=== PATIENT | female | born 1955 | race Caucasian/White ===

== ENCOUNTER 2018-08-06 11:24 | Outpatient (REF) | payer BC, SELFPAY ==
[2018-08-06 21:18] LABS: Anion Gap 6.8 mmol/L (3-11); BUN 18 mg/dL (7-18); CO2 29.2 mmol/L (21.0-32.0); CREATININE 0.74 mg/dL (0.55-1.02); Calcium 9.3 mg/dL (8.5-10.1); Chloride 102 mmol/L (98-107); Cholesterol 261 mg/dL (50-200); Glucose 89 mg/dL (70-100); HDL Cholesterol 59 mg/dL (40-60); LDL CHOLESTEROL 177 mg/dL (<100); Potassium 4.6 mmol/L (3.5-5.1); Sodium 138 mmol/L (136-145); Triglyceride 151 mg/dL (30-150)
== END 2018-08-06 11:44 ==
LOC: NCHCN 11:24
PROVIDERS: PCP Nurse Practitioner Family; Visit Provider Nurse Practitioner Family
DX: Z00.00 Encounter for general adult medical examination without abnormal findings (principal); E78.5 Hyperlipidemia, unspecified; I10 Essential (primary) hypertension; R00.8 Other abnormalities of heart beat; I87.2 Venous insufficiency (chronic) (peripheral); G43.909 Migraine, unspecified, not intractable, without status migrainosus; M19.90 Unspecified osteoarthritis, unspecified site
CPT/HCPCS: 80048; 80061; 83721

== ENCOUNTER 2018-10-19 00:14 | Outpatient (CLI) | payer BC, SELFPAY ==
--- NOTE | 2018-10-19 11:10 | DI.MAMMO_ITS ---
SYMPTOMS/DIAGNOSIS: SCREENING, Z12.31, PREVENTATIVE CARE, Z00.00 MAMMOGRAM: Mammograms were interpreted according to the usual protocol including computer analysis with CAD system, tomosynthesis and C view imaging. Comparison is made with exams from 2013 through 2018. The breasts are composed of scattered fibroglandular densities, breast density Category B. No suspicious masses or suspicious microcalcifications are seen. There has been no significant change. IMPRESSION: Category I B, negative mammogram. Yearly screening mammography is recommended. [facility] ASSESSMENT OF FINDINGS: Negative. Category 1. Patient will receive a letter notifying them of these results. BI-RADS category B. There are scattered areas of fibroglandular density.
== END 2018-10-19 00:34 ==
PROVIDERS: PCP Nurse Practitioner Family; Visit Provider Nurse Practitioner Family
DX: Z00.00 Encounter for general adult medical examination without abnormal findings (principal); Z12.31 Encounter for screening mammogram for malignant neoplasm of breast
CPT/HCPCS: 77063; 77067

== ENCOUNTER 2019-03-09 12:13 | Outpatient (CLI) | payer BC, SELFPAY ==
--- NOTE | 2019-03-09 12:26 | DI.US_ITS ---
SYMPTOM/DIAGNOSIS: LEG PAIN, M79.696, FIRM AREA, PAINFUL AND RED, ? DVT VS SUPERFICIAL THROMBOPHLEBITIS RIGHT LOWER EXTREMITY ULTRASOUND: Thrombus is noted within the greater saphenous vein from the proximal thigh through the proximal calf. The clot extends 2 cm. from the saphenofemoral junction. The deep venous system appears free of thrombus. No Cook's cyst or hematoma is seen. IMPRESSION: Saphenous thrombosis.
[2019-03-09 12:35] LABS: Abs Immature Grans 0.02 k/cumm (0.0-0.09); Absolute Basophil Count 0.02 k/cumm (0.0-0.2); Absolute Eosinophil Count 0.21 k/cumm (0.0-0.7); Absolute Lymphocyte Count 2.11 k/cumm (1.2-3.4); Absolute Monocyte Count 0.56 k/cumm (0.11-0.7); Absolute Neutrophil Count 4.25 k/cumm (1.2-6.7); Basophils % 0.3; Eosinophils % 2.9; HCT 42.6 % (36.0-46.0); HGB 14.2 g/dL (12.0-15.5); Immature Grans % 0.3; Lymphocytes % 29.4; Mean Corp. HGB Concentration 33.3 g/dL (32.0-36.0); Mean Corpuscular Hemoglobin 31.8 pg (27.0-33.0); Mean Corpuscular Volume 95.3 fL (80-95); Mean Platelet Volume 10.4 fL (8.0-11.0); Monocytes % 7.8; Neutrophils % 59.3; Platelet Count 262 x1000/uL (130-400); RBC 4.47 m/cumm (4.00-5.20); White Blood Cell Count 7.17 k/cumm (4.4-10.8)
[2019-03-09 12:56] LABS: Prothrombin Time 9.6 sec (9.3-11.0)
[2019-03-09 13:10] LABS: PTT Activated 23.1 sec (21.0-31.4)
[2019-03-09 13:43] LABS: C-Reactive Protein 1.26 mg/dL (0.0-0.3)
[2019-03-09 14:21] LABS: D-Dimer 2268 ng/mlFEU (<500)
[2019-03-09 14:46] LABS: ESR 22 MM/HR (0-30)
== END 2019-03-09 12:33 ==
PROVIDERS: PCP Nurse Practitioner Family; Visit Provider Nurse Practitioner Family
DX: M79.604 Pain in right leg (principal); I82.811 Embolism and thrombosis of superficial veins of right lower extremity; L53.8 Other specified erythematous conditions
CPT/HCPCS: 36415; 85652; 85025; 85379; 85610; 85730; 86140; 93971

== ENCOUNTER 2019-04-06 01:21 | Outpatient (CLI) | payer BC, SELFPAY ==
--- NOTE | 2019-04-06 07:30 | DI.US_ITS ---
SYMPTOM/DIAGNOSIS: F/U SAPHENOUS VEIN THROMBOPHLEBITIS, I80.00 RIGHT LOWER EXTREMITY ULTRASOUND: The deep veins of the right lower extremity show normal compression, augmentation and color flow. There is no evidence of a deep venous thrombus. No focal fluid collection is seen to suggest a Cook's cyst. Thrombus is seen in the greater saphenous vein. The saphenofemoral junction appears patent. IMPRESSION: 1. No evidence of a right lower extremity deep venous thrombus. 2. Superficial thrombophlebitis.
== END 2019-04-06 01:41 ==
PROVIDERS: PCP Nurse Practitioner Family; Visit Provider Nurse Practitioner Family
DX: I80.01 Phlebitis and thrombophlebitis of superficial vessels of right lower extremity (principal)
CPT/HCPCS: 93971

== ENCOUNTER 2020-03-15 08:23 | Outpatient (REF) | payer MEDICAID, SELFPAY ==
[2020-03-15 19:47] LABS: BUN 15 mg/dL (7-18); CREATININE 0.94 mg/dL (0.55-1.02); Calcium 9.5 mg/dL (8.5-10.1); Calculated LDL 181 mg/dL (<100); Chloride 100 mmol/L (98-107); Cholesterol 275 mg/dL (<200); Estimated GFR 59.76 (mL/min/1.73m2); Glucose 94 mg/dL (74-106); HDL Cholesterol 54 mg/dL (40-60); Potassium 4.5 mmol/L (3.5-5.1); Sodium 138 mmol/L (136-145); Triglyceride 203 mg/dL (<150)
== END 2020-03-15 08:43 ==
LOC: NCHCN 08:23
PROVIDERS: PCP Nurse Practitioner Family; Visit Provider Nurse Practitioner Family
DX: E78.5 Hyperlipidemia, unspecified (principal); I10 Essential (primary) hypertension; I87.2 Venous insufficiency (chronic) (peripheral); I80.00 Phlebitis and thrombophlebitis of superficial vessels of unspecified lower extremity; F41.8 Other specified anxiety disorders
CPT/HCPCS: 80048; 80061

== ENCOUNTER 2020-04-18 00:24 | Outpatient (CLI) | payer MEDICAID, SELFPAY ==
--- NOTE | 2020-04-18 | DI.MAMMO_ITS ---
EXAM: MAMMO SCREENING CLINICAL HISTORY: SCREENING, Z12.39 TECHNIQUE: Mammograms were interpreted according to the usual protocol including computer analysis w ith CAD system, tomosynthesis and C-view imaging. COMPARISON: 2009 through 2018 FINDINGS: The breasts are composed of scattered fibroglandular densities, Breast Density category B. No suspicious masses or suspicious microcalcifications are seen. No skin thickening or abnormal axillary lymph nodes are seen. There has been no significant change from prior exams. IMPRESSION: BI-RADS Category 1, negative mammogram. Yearly screening mammography is recommended. Breast Density Category B, scattered fibroglandular densities.
== END 2020-04-18 00:44 ==
PROVIDERS: PCP Nurse Practitioner Family; Visit Provider Nurse Practitioner Family
DX: Z12.31 Encounter for screening mammogram for malignant neoplasm of breast (principal); R92.2 Inconclusive mammogram
CPT/HCPCS: 77063; 77067

== ENCOUNTER 2022-06-12 15:32 | Outpatient (REF) | payer MEDICARE, MEDICAID, SELFPAY ==
[2022-06-12 17:17] LABS: Anion Gap 9.6 mmol/L (3-11); BUN 12 mg/dL (7-18); CO2 27.4 mmol/L (21.0-32.0); CREATININE 0.8 mg/dL (0.55-1.02); Calcium 9.3 mg/dL (8.5-10.1); Chloride 101 mmol/L (98-107); Estimated GFR 80.71 (mL/min/1.73m2); Glucose 106 mg/dL (74-106); Potassium 4.3 mmol/L (3.5-5.1); Sodium 138 mmol/L (136-145)
== END 2022-06-12 15:33 | disposition home or self-care (01) ==
LOC: NCHCN 15:32
PROVIDERS: PCP Nurse Practitioner Family; Visit Provider Nurse Practitioner Family
DX: I10 Essential (primary) hypertension (principal)
CPT/HCPCS: 80048

== ENCOUNTER → 2022-06-27 01:55 | Outpatient (CLI) | payer MEDICARE, MEDICAID, SELFPAY ==
--- NOTE | 2022-06-27 | DI.MAMMO_ITS ---
Exam(s) MAMMO SCREENING EXAM: MAMMO SCREENING CLINICAL HISTORY: SACREENING MAMMO FOR BREAST CANCER Z12.31 TECHNIQUE: Mammograms were interpreted according to the usual protocol including computer analysis w [employer] CAD system, tomosynthesis and C-view imaging. COMPARISON: FINDINGS: The breasts are of moderate density with fairly symmetrical distribution of fibroglandular tissue. N o dominant mass or clumped microcalcification is identified in either breast. The current examinatio n is compared with previous examinations including March 2020 and there has been no gross interval ced nge in appearance in comparison with prior studies. IMPRESSION: No specific evidence of malignancy at this time. Routine screening examinations are suggested at yea rly intervals due to the family history of breast carcinoma. BI-RADS Category 1 - Negative Breast Density - Category B - Scattered areas of fibroglandular density
== END ==
PROVIDERS: PCP Nurse Practitioner Family; Visit Provider Nurse Practitioner Family
DX: Z12.31 Encounter for screening mammogram for malignant neoplasm of breast (principal)
CPT/HCPCS: 77063; 77067

== ENCOUNTER 2023-06-16 14:31 | Outpatient (REF) | payer MEDICARE, MEDICAID, SELFPAY ==
[2023-06-16 21:12] LABS: Anion Gap 10.2 mmol/L (3-11); BUN 14 mg/dL (7-18); CO2 25.8 mmol/L (21.0-32.0); CREATININE 0.9 mg/dL (0.55-1.02); Calcium 9.3 mg/dL (8.5-10.1); Calculated LDL 193 mg/dL (<100); Chloride 100 mmol/L (98-107); Cholesterol 279 mg/dL (<200); Estimated GFR 69.64 (mL/min/1.73m2); Glucose 95 mg/dL (74-106); HDL Cholesterol 49 mg/dL (40-60); Potassium 3.9 mmol/L (3.5-5.1); Sodium 136 mmol/L (136-145); Triglyceride 189 mg/dL (<150)
== END 2023-06-16 14:32 | disposition home or self-care (01) ==
LOC: NCHCN 14:31
PROVIDERS: PCP Nurse Practitioner Family; Visit Provider Nurse Practitioner Family
DX: I10 Essential (primary) hypertension (principal); E78.5 Hyperlipidemia, unspecified
CPT/HCPCS: 80048; 80061

== ENCOUNTER → 2023-07-01 01:05 | Outpatient (CLI) | payer MEDICARE, MEDICAID, SELFPAY ==
--- NOTE | 2023-07-01 | DI.MAMMO_ITS ---
Exam(s) MAMMO SCREENING EXAM: MAMMO SCREENING CLINICAL HISTORY: SCREENING FOR BREAST CANCER Z12.39 Z12.31 TECHNIQUE: Bilateral full field digital CC and MLO mammographic images were obtained with 3D tomosyn thesis and utilizing computer aided detection (CAD). COMPARISON: Available for comparison. FINDINGS: Masses/Architectural Distortion: None seen. Microcalcifications: No suspicious pleomorphic-type are seen. Skin Thickening/Nipple Retraction: None. IMPRESSION: 1. No significant interval change with no specific features of malignancy noted. 2. Unless there is more urgent need, screening mammography is recommended, as per [place] [employer] guidelines. BI-RADS Category 1 - Negative Breast Density - Category B - Scattered areas of fibroglandular density Breast density category C or D implies that the patient has dense breast tissue. Dense breast tissue is very common and is not abnormal but dense breast tissue can make it harder to find cancer on a ma mmogram. Also, dense breast tissue may increase their breast cancer risk. This information about the result of the mammogram report was provided to the patient to raise their awareness. Use this report when you speak with the patient about their risks for breast cancer, which includes their family hist ory. At that time, you may recommend for more screening tests (Ultrasound or MRI) as they might be us eful based on their risk. A negative radiographic report should not delay biopsy if a dominant or clinically suspicious mass is present. Up to ten percent of cancers are not identified on mammography. A negative report may reinforce clinical impression. Adenosis and dense breasts may obscure an underlying neoplasm. False positive reports average 6 to 10%. Patient will receive a letter notifying them of these results.
== END ==
PROVIDERS: PCP Nurse Practitioner Family; Visit Provider Nurse Practitioner Family
DX: Z12.31 Encounter for screening mammogram for malignant neoplasm of breast (principal)
CPT/HCPCS: 77063; 77067

== ENCOUNTER 2024-06-15 11:49 | Outpatient (REF) | payer MEDICARE, MEDICAID, SELFPAY ==
[2024-06-15 16:07] LABS: ALT 6 U/L (14-59); AST 14 U/L (15-37); Albumin 3.4 g/dL (3.4-5.0); Alkaline Phosphatase 87 U/L (46-116); Anion Gap 7.4 mmol/L (3-11); BUN 14 mg/dL (7-18); Bilirubin, Total 0.77 mg/dL (0.2-1.0); CO2 28.6 mmol/L (21.0-32.0); CREATININE 0.9 mg/dL (0.55-1.02); Calcium 9.4 mg/dL (8.5-10.1); Calculated LDL 211 mg/dL (<100); Chloride 100 mmol/L (98-107); Cholesterol 297 mg/dL (<200); Glucose 104 mg/dL (74-106); HDL Cholesterol 52 mg/dL (40-60); Sodium 136 mmol/L (136-145); Total Protein 8.1 g/dL (6.4-8.2); Triglyceride 173 mg/dL (<150)
[2024-06-15 16:40] LABS: Hemoglobin A1C 5.8 % (<5.7)
== END 2024-06-15 11:50 | disposition home or self-care (01) ==
LOC: NCHCN 11:49
PROVIDERS: PCP Nurse Practitioner Family; Visit Provider Physician Assistant Medical
DX: I10 Essential (primary) hypertension (principal)
CPT/HCPCS: 80053; 80061; 83036

== ENCOUNTER 2024-06-21 02:23 | Outpatient (CLI) | payer MEDICARE, MEDICAID, SELFPAY ==
--- NOTE | 2024-06-21 | DI.MAMMO_ITS ---
Exam(s) MAMMO SCREENING EXAM: MAMMO SCREENING CLINICAL HISTORY: SCREENING, Z12.31 TECHNIQUE: Mammograms were interpreted according to the usual protocol including computer analysis w [employer] CAD system, tomosynthesis and C-view imaging. COMPARISON: 2013 through 2022 FINDINGS: The breasts are composed of scattered fibroglandular densities, Breast Density category B. No suspicious masses or suspicious microcalcifications are seen. No skin thickening or abnormal axillary lymph nodes are seen. There has been no significant change from prior exams. IMPRESSION: BI-RADS Category 1, Negative mammogram Yearly screening mammography is recommended. Breast Density - Category B, scattered fibroglandular densities. A negative radiographic report should not delay biopsy if a dominant or clinically suspicious mass is present. Up to ten percent of cancers are not identified on mammography. A negative report may reinforce clinical impression. Adenosis and dense breasts may obscure an underlying neoplasm. False positive reports average 6 to 10%. Patient will receive a letter notifying them of these results.
== END 2024-06-21 02:43 ==
PROVIDERS: PCP Physician Assistant Medical; Visit Provider Physician Assistant Medical
DX: Z12.31 Encounter for screening mammogram for malignant neoplasm of breast (principal)
CPT/HCPCS: 77063; 77067

== ENCOUNTER 2025-06-22 11:35 | Outpatient (REF) | payer MEDICARE, MEDICAID, SELFPAY ==
[2025-06-22 15:57] LABS: HCT 43.3 % (36.0-46.0); HGB 14.3 g/dL (11.2-15.7); MCH 31.6 pg (27.0-33.0); MCHC 33.0 % (32.0-36.0); MCV 96 fL (80-95); MPV 10.6 fL (8.0-11.0); Platelet Count 308 10^3/uL (130-400); RBC 4.52 10^6/uL (3.93-5.22); RDW 13.3 % (11.7-14.6); RDW-SD 46.8 fL; WBC 10.16 10^3/uL (4.4-10.8)
[2025-06-22 16:15] LABS: Anion Gap 7.2 mmol/L (3-11); BUN 17 mg/dL (7-18); CO2 29.8 mmol/L (21.0-32.0); Calcium 9.3 mg/dL (8.5-10.1); Calculated LDL 173 mg/dL (<100); Chloride 100 mmol/L (98-107); Cholesterol 266 mg/dL (<200); Estimated GFR 68.77 (mL/min/1.73m2); Glucose 101 mg/dL (74-106); HDL Cholesterol 52 mg/dL (>or=50); Potassium 4.8 mmol/L (3.5-5.1); Sodium 137 mmol/L (136-145); Triglyceride 206 mg/dL (<150)
[2025-06-22 16:25] LABS: Hemoglobin A1C 5.8 % (<5.7)
== END 2025-06-22 11:36 | disposition home or self-care (01) ==
LOC: NCHCN 11:35
PROVIDERS: PCP Physician Assistant Medical; Visit Provider Physician Assistant Medical
DX: Z13.1 Encounter for screening for diabetes mellitus (principal); I10 Essential (primary) hypertension; R35.0 Frequency of micturition
CPT/HCPCS: 80048; 80061; 85027; 87077; 83036; 87086; 87186

== ENCOUNTER 2025-06-30 04:34 | Outpatient (CLI) | payer MEDICARE, MEDICAID, SELFPAY ==
--- NOTE | 2025-06-30 | DI.MAMMO_ITS ---
Exam(s) MAMMO SCREENING EXAM: MAMMO SCREENING CLINICAL HISTORY: SCREENING, Z12.31 TECHNIQUE: Bilateral full field digital CC and MLO mammographic images were obtained with 3D tomosynthesis and utilizing computer aided detection (CAD). COMPARISON: Comparison is made with prior examinations. FINDINGS: Masses/Architectural Distortion: No suspicious masses or areas of architectural distortion are present. Microcalcifications: No suspicious pleomorphic-type are seen. Skin Thickening/Nipple Retraction: None. IMPRESSION: 1. No significant interval change with no specific features of malignancy noted. 2. Unless there is more urgent need, screening mammography is recommended, as per [place] [employer] guidelines. BI-RADS Category 1 - Negative Breast Density - Category B - There are scattered areas of fibroglandular density. Breast density Category C or D implies that the patient has dense breast tissue. Dense breast tissue can make it harder to find cancer on a mammogram. Dense breast tissue is also associated with an increased risk of breast cancer. This information about the result of the mammogram report was provided to the patient to raise their awareness. Use this report when you speak with the patient about their risks for breast cancer, which includes their family history. At that time, you may recommend additional screening tests (Ultrasound or MRI) as these tests may add significant information. A negative radiographic report should not delay biopsy if a dominant or clinically suspicious mass is present. Up to ten percent of cancers are not identified on mammography. A negative report may reinforce clinical impression. Adenosis and dense breasts may obscure an underlying neoplasm. False positive reports average 6 to 10%. Patient will receive a letter notifying them of these results.
== END 2025-06-30 04:54 ==
PROVIDERS: PCP Physician Assistant Medical; Visit Provider Physician Assistant Medical
DX: Z12.31 Encounter for screening mammogram for malignant neoplasm of breast (principal)
CPT/HCPCS: 77063; 77067

== ENCOUNTER 2025-08-26 15:20 | Observation (INO) | payer MEDICARE, MEDICAID, SELFPAY ==
[2025-08-26 15:26] VITALS: BP 170/103; PULSE 87; RESP 20; TEMP 36.8; O2SAT 95
--- NOTE | 2025-08-26 15:30 | DI.CT_ITS ---
Exam(s) CT THORACIC LUMBAR SPINE WO EXAM: CT THORACIC LUMBAR SPINE WO CLINICAL HISTORY: fall, pain. TECHNIQUE: Imaging Protocol: Axial computed tomography images with coronal and sagittal reformatted images were created and reviewed. CONTRAST MATERIAL: None COMPARISON: No exams were available for comparison FINDINGS: THORACIC SPINAL COLUMN: No evidence acute fracture the thoracic vertebrae. No listhesis. No facet joint malalignment. Incidentally noted is a benign intraosseous hemangioma in the left side of a midthoracic vertebra. No ominous osseous lesions. LUMBOSACRAL SPINAL COLUMN: No evidence of acute fracture or listhesis. There is advanced disc space narrowing at each level in the lumbosacral spinal column. No pars defects. Transverse process is are in tact. There is severe spinal canal stenosis at L3- 4 level and moderate-severe canal stenosis at L4-5 level. Multilevel facet arthropathy evident most prominent at the L3-4, L4-5, and L5-S1 levels IMPRESSION: 1. No evidence of acute fracture in the thoracic and lumbosacral spinal columns. 2. Severe spinal canal stenosis at L3-4 and L4-5 levels Called by myself to ER physician 08/26/2025 at 5:04 p.m. RADIATION DOSE DELIVERED: 2,543.01mGy.cm Total DLP DATA REPOSITORY: All CT scans at this facility are submitted to the National Radiology Data Registry (NRDR) Dose Index Registry (DIR) with the [employer] (A[employer]). RADIATION OPTIMIZATION: All CT scans at this facility use at least one of these dose optimization techniques: automated exposure control; mA and/or kV adjustment per patient size (includes targeted exams where dose is matched to clinical indication); or iterative reconstruction.
--- NOTE | 2025-08-26 15:44 | W.ED.GENAD ---
Discharge Plan Disposition Patient Disposition: Admit to [facility] Condition: Stable Discharge Details Clinical Impression: Low back strain, Ambulatory dysfunction Primary Care Provider: Evelyne Nnuo ED Provider: Duglas Perez Home Meds and New Rx's Prescriptions: No Action aspirin [Aspirin Low-Strength] 81 MG tablet,chewable 81 mg PO DAILY ibuprofen 200 MG capsule 400 mg PO PRN PRN metoprolol tartrate 25 mg tablet 25 mg PO BID Patient Comments: TAKE ONE TABLET BY MOUTH TWICE A DAY acetaminophen [Tylenol Arthritis Pain] 650 MG tablet extended release 650 mg PO DAILY Pepcid Complete 1 EACH tablet,chewable 1 ea PO DAILY HPI General Mode of arrival: wheelchair. Date/Time Provider Initiated Documentation: 08/26/25 15:22. Limitations to Documentation: no limitations. Information obtained by: patient. History of Present Illness 70 year old F presents to the emergency department with the chief complaint of back pain s/p fall, described as moderate, Quality is described as aching, and is localized to the back. Patient reports no radiation. Patient started experiencing this hour(s) (1) and it has been constant. No relieving factors improve symptom(s), No exacerbating factors reported . Patient notes no other symptoms.. Patient did receive the following treatments prior to arrival, NSAID Related Data Home Medications ?Medication ?Instructions ?Recorded ?Confirmed ibuprofen 200 mg capsule 400 mg PO PRN PRN 02/12/15 08/26/25 aspirin 81 mg chewable tablet 81 mg PO DAILY 09/07/15 08/26/25 (Aspirin Low-Strength) acetaminophen 650 mg 650 mg PO DAILY 01/23/17 08/26/25 tablet,extended release (Tylenol Arthritis Pain) famotidine-Ca carb-mag hydrox 10 1 ea PO DAILY 01/23/17 08/26/25 mg-800 mg-165 mg chewable tablet (Pepcid Complete) metoprolol tartrate 25 mg tablet 25 mg PO BID 08/26/25 08/26/25 Allergies Allergy/AdvReac Type Severity Reaction Status Date / Time No Known Allergies Allergy Unverified 08/26/25 15:30 General Stated Complaint: Nk/Back Pain JEN: 3 Review of Systems All systems reviewed & are unremarkable except as noted in HPI and below Constitutional Constitutional: Denies chills, Denies fever(s) and Denies weakness Cardiovascular Cardiovascular: Denies chest pain and Denies dyspnea Respiratory Respiratory: Denies cough and Denies dyspnea Gastrointestinal Gastrointestinal: Denies abdominal pain, Denies nausea and Denies vomiting Musculoskeletal Musculoskeletal: Reports back pain Neurologic Neurologic: Denies weakness Exam Const General: no acute distress Orientation: alert [facility] Head: normal to inspection Ears: external ears normal General nose exam: external nose normal Mouth: moist mucous membranes Eyes General: appearance normal, both eyes and all related structures Neck Neck: normal visual inspection Resp Effort & Inspection: normal respiratory effort and able to speak in complete sentences Cardio Rate: regular rate GI Palpation: soft and nontender Back/Spine/Pelvis Back: no CVA tenderness Thoracic/Lumbar Spine: thoracic spinal tenderness and lumbar spinal tenderness Skin General skin exam: no rashes or lesions noted Neuro General: patient alert and patient oriented x3 Extrem General: normal to inspection Psych Mental Status: mental status grossly normal Course Vital Signs Vital signs: Vital Signs Temperature 36.8 C 08/26/25 15:26 Pulse 87 08/26/25 15:26 Respiratory Rate 20 08/26/25 15:26 Blood Pressure 170/103 H 08/26/25 15:26 Pulse Oximetry 95 08/26/25 15:26 Temperature 36.8 C 08/26/25 15:26 Pulse 87 08/26/25 15:26 Respiratory Rate 20 08/26/25 15:26 Blood Pressure 170/103 H 08/26/25 15:26 Blood Pressure Position Sitting 08/26/25 15:26 Pulse Oximetry 95 08/26/25 15:26 Oxygen Delivery Method Room Air 08/26/25 15:26 Oxygen Flow Rate 0 08/26/25 15:26 Medical Decision Making 70-year-old female comes in after she says she was carrying laundry detergent and her right knee gave out which she says happens from time to time causing her to fall down on her back. She did not hit her head or loss of consciousness. She has pain in the lower midline back. No headache, no neck pain, no chest or abdomen pain. She has tenderness over the lower thoracic and upper lumbar spinous processes without any palpable or visible deformities. Also has paraspinous muscle tenderness in the areas. No abdominal or chest tenderness. No saddle anesthesia. Suspect muscle spasm and possibly a compression fracture. Will obtain CT thoracic and lumbar spine and check basic labs and treat her symptoms with Tylenol and Valium and reassess. CT shows no fractures, does have spinal stenosis, she is not feeling any better in terms of her pain. Will trial cyclobenzaprine and Toradol and reassess. Patient was still in pain so I trialed morphine with minimal relief and she still was not able to get out of the stretcher. I do suspect musculoskeletal back strain, will discuss with hospitalist about admission for further pain control and to see physical therapy in the morning. Differential Diagnosis Differential Diagnosis: muscle spasm, compression fracture ECG Data Attestation: I personally reviewed and interpreted this ECG (s) as follows: Prior ECG tracings: not available for review Interpretation: sinus rate of 84 no stemi PFSH All Active Problems (Updated 08/26/25 @ 19:41 by Aman Sykes MD) Systolic ejection murmur (Acute) HTN (hypertension) (Chronic) Ambulatory dysfunction (Acute) Low back strain (Acute) Social History Smoking/Tobacco Use Status: Never Smoking risk assessment performed?: Yes Drug use: Never Do you feel safe in your relationship?: Yes
[2025-08-26] MEDS: diazePAM 10 MG/2 ML SYR 2 MG IVP (15:57)
[2025-08-26] MEDS: ACETAMINOPHEN 1,000 MG/100 ML BAG 400 MG IVPB (15:57)
[2025-08-26 15:58] LABS: Abs Immature Grans 0.05 10^3/uL (0.0-0.06); HCT 44.1 % (36.0-46.0); HGB 14.5 g/dL (11.2-15.7); Immature Grans % 0.5 %; MCH 31.2 pg (27.0-33.0); MCHC 32.9 % (32.0-36.0); MCV 95 fL (80-95); MPV 10.0 fL (8.0-11.0); Platelet Count 240 10^3/uL (130-400); RBC 4.65 10^6/uL (3.93-5.22); RDW 14.1 % (11.7-14.6); RDW-SD 49.3 fL; WBC 9.42 10^3/uL (4.4-10.8)
[2025-08-26 16:16] LABS: Magnesium 1.9 mg/dL (1.6-2.6)
[2025-08-26 16:18] LABS: ALT 7 U/L (10-49); AST 17 U/L (<34); Albumin 4.2 g/dL (3.2-5.0); Alkaline Phosphatase 73 U/L (46-116); Anion Gap 8.7 mmol/L (3-11); BUN 19 mg/dL (9-23); Bilirubin, Total 0.40 mg/dL (0.2-1.2); CO2 26.3 mmol/L (20.0-31.0); Calcium 9.3 mg/dL (8.3-10.6); Chloride 104 mmol/L (98-107); Glucose 104 mg/dL (74-106); Potassium 4.1 mmol/L (3.5-5.1); Sodium 139 mmol/L (136-145); Total Protein 8.0 g/dL (5.7-8.2)
[2025-08-26] MEDS: Ketorolac 15 MG/ML VIAL IVP (17:31)
[2025-08-26] MEDS: Cyclobenzaprine 10 MG TAB PO ×2 (17:33→21:28)
[2025-08-26] MEDS: Lidocaine 5% Patch 1 PATCH TP (17:34)
[2025-08-26] MEDS: MORPHine 10 MG/ML VIAL 4 MG IVP (18:19)
[2025-08-26 19:20] VITALS: BP 147/78; PULSE 89; RESP 16; O2SAT 94
--- NOTE | 2025-08-26 19:30 | RT.EKG_ITS ---
APPROVED REPORT Exam: Resting ECG Reason for Exam: duncan Patient Location: E HR:84 bpm ECG Measurements Heart Rate 84 AXIS FL 170 P 53 QRSd 75 QRS -24 QT 371 T 33 QTc 437 Conclusion Sinus rhythm...normal P axis, V-rate 60- 99 Probable left atrial enlargement...P >50mS, <-0.10mV V1 Inferior infarct, old...Q >35mS, II III aVF
--- NOTE | 2025-08-26 19:37 | HPE_ITS ---
Date of service: 08/26/25 Time of Service: 19:37 Assessment and Plan Assessment and plan (1) Low back strain: Status: Acute Assessment and plan: Physical therapy in the a.m. continue with muscle relaxants and pain meds. Patient does not have signs and symptoms consistent with radiculopathy. Would consider workup in the outpatient setting at the discretion of her PCP with her severe spinal canal stenosis. Will body of the report for completeness. MPRESSION: 1. No evidence of acute fracture in the thoracic and lumbosacral spinal columns. 2. Severe spinal canal stenosis at L3-4 and L4-5 levels (2) HTN (hypertension): Status: Chronic Assessment and plan: Continue with metoprolol (3) Systolic ejection murmur: Status: Acute Assessment and plan: I have ordered an EKG. Ideally we can get an echocardiogram but as it is the weekend and the patient is asymptomatic recommend a follow-up appointment in the outpatient setting. History of Present Illness History of Present Illness Chief Complaint: back pain Narrative: This is a 70-year-old female who is in remarkably good shape for her age who was walking down the steps at her house carrying some laundry and her knee gave out she fell to the floor did not strike her head is landed on her right side but had significant back pain after the fall. Patient was brought in by ambulance for further evaluation and treatment. While she was in the ED CT scan of her lumbar thoracic and sacral spine was performed which was essentially benign except for severe spinal canal stenosis at L3-L4 and L4-L5. Patient does not have any complaints of radiculopathy patient does not have any complaints of bowel or bladder incontinence. Patient attempted a walk test but was not able to ambulate safely so decision was made to admit overnight. On my physical exam though I did not hear significant 4-6 systolic ejection murmur. Patient states that he never had an echocardiogram denies any dyspnea on exertion or chest pain. Patient is a full code Review of Systems All systems reviewed & are unremarkable except as noted in HPI and below PFSH All Active Problems (Updated 08/26/25 @ 19:41 by Aman Sykes MD) Systolic ejection murmur (Acute) HTN (hypertension) (Chronic) Ambulatory dysfunction (Acute) Low back strain (Acute) Social History Smoking/Tobacco Use Status: Never Smoking risk assessment performed?: Yes Drug use: Never Do you feel safe in your relationship?: Yes Meds Allergies and Home Medications Allergies Allergy/AdvReac Type Severity Reaction Status Date / Time No Known Allergies Allergy Unverified 08/26/25 15:30 Home Medications ?Medication ?Instructions ?Recorded ?Confirmed ?Type ibuprofen 200 mg capsule 400 mg PO PRN PRN 02/12/15 1 10/27/24 History aspirin 81 mg chewable tablet 81 mg PO DAILY 09/07/15 08/26/25 History (Aspirin Low-Strength) acetaminophen 650 mg 650 mg PO DAILY 01/23/1702/13 History tablet,extended release (Tylenol Arthritis Pain) famotidine-Ca carb-mag hydrox 10 1 ea PO DAILY 7 08/26/25 History mg-800 mg-165 mg chewable tablet (Pepcid Complete) metoprolol tartrate 25 mg tablet 25 mg PO BID 08/26/25 08/26/25 History Exam Narrative Exam Narrative: HEENT normocephalic atraumatic mucous membranes moist oropharynx is clear Neck no lymphadenopathy no JVD no thyromegaly Cardiovascular 4-6 systolic ejection murmur regular rate and rhythm Lungs clear to auscultation with good air exchange Abdomen soft nontender nondistended Back no tenderness to palpation on the joint line Musculoskeletal 5 out of 5 upper lower extremity strength bilaterally Results Labs 08/26/25 15:50 08/26/25 15:50 Labs: Laboratory Results - last 24 hr 08/26/25 15:50 WBC 9.42 RBC 4.65 Hgb 14.5 Hct 44.1 MCV 95 MCH 31.2 MCHC 32.9 RDW 14.1 Plt Count 240 MPV 10.0 Immature Gran % 0.5 Neutrophils % 70.1 Lymphocytes % 19.0 Monocytes % 7.1 Eosinophils % 2.9 Basophils % 0.4 Nucleated RBC % 0.0 Absolute Neutrophils 6.60 Absolute Lymphocytes 1.79 Absolute Monocytes 0.67 Absolute Eosinophils 0.27 Absolute Basophils 0.04 Sodium 139 Potassium 4.1 Chloride 104 Carbon Dioxide 26.3 Anion Gap 8.7 BUN 19 Creatinine 0.70 Est GFR (CKD-EPI 2020) 82.60 Glucose 104 Calcium 9.3 Magnesium 1.9 Total Bilirubin 0.40 AST 17 ALT 7 L Alkaline Phosphatase 73 Total Protein 8.0 Albumin 4.2 Last Vital Signs Temp 36.8 C 08/26/25 15:26 Pulse 89 08/26/25 19:20 Resp 16 08/26/25 19:20 BP 147/78 H 08/26/25 19:20 Pulse Ox 94 08/26/25 19:20 VTE Prohylaxis Risk Level: Moderate/High Risk Contraindications: None Prophylaxis: Patient anticoagulated and Pharmacologic Time Spent Time spent with Patient: 40-54 minutes Time was spent: preparing to see the patient(eg.review tests), obtaining and/or reviewing separately otained hiistory, ordering medications,tests, procedures, referring, communicating with other health behavioral health care manager, indepentently interpreting results, counseling the patient and care coordination
--- NOTE | 2025-08-26 20:09 | W.PC.ACHO ---
Registration Status: REG ER Primary Language: Preferred Language: Welsh ED Information & Data Chief Complaint Nk/Back Pain 08/26/25 15:45 Other Complaint Fall/Non TraumaCriteria 08/26/25 15:26 Triage Note 10 of 10 cramping/spasming 08/26/25 15:26 pain in right flank/lumbar area. Started while PT was lifting and twisting causing her R knee to give out which caused her to fall. Hx of issues with R knee. Most Recent Vital Signs Temperature 36.8 C 08/26/25 15:26 Pulse 89 08/26/25 19:20 Respiratory Rate 16 08/26/25 19:20 Blood Pressure 147/78 H 08/26/25 19:20 Blood Pressure Mean 101 08/26/25 19:20 Blood Pressure Position Sitting 08/26/25 15:26 Pulse Oximetry 94 08/26/25 19:20 Oxygen Delivery Method Room Air 08/26/25 15:26 Oxygen Flow Rate 0 08/26/25 15:26 Pain Level 6 08/26/25 19:20 Allergies No Known Allergies Allergy (Unverified 08/26/25 15:30) IV IV Catheter Type [Left Saline Lock Antecubital] IV Catheter Gauge [Left 18 Antecubital] Diet Orders Category Date Time Status Regular/Normal [DIET] Nutrition 08/27/25 Breakfast Ordered Diagnostics 08/26/25 Range/Units 15:50 WBC 9.42 (4.4-10.8) 10^3/uL RBC 4.65 (3.93-5.22) 10^6/uL Hgb 14.5 (11.2-15.7) g/dL Hct 44.1 (36.0-46.0) % MCV 95 (80-95) fL MCH 31.2 (27.0-33.0) pg MCHC 32.9 (32.0-36.0) % RDW 14.1 (11.7-14.6) % Plt Count 240 (130-400) 10^3/uL MPV 10.0 (8.0-11.0) fL Immature Gran % 0.5 % Neutrophils % 70.1 % Lymphocytes % 19.0 % Monocytes % 7.1 % Eosinophils % 2.9 % Basophils % 0.4 % Nucleated RBC % 0.0 (0.0-0.3) % Absolute Neutrophils 6.60 (1.2-6.7) 10^3/uL Absolute Lymphocytes 1.79 (1.2-3.4) 10^3/uL Absolute Monocytes 0.67 (0.1-0.8) 10^3/uL Absolute Eosinophils 0.27 (0.0-0.7) 10^3/uL Absolute Basophils 0.04 (0.0-0.2) 10^3/uL Sodium 139 (136-145) mmol/L Potassium 4.1 (3.5-5.1) mmol/L Chloride 104 (98-107) mmol/L Carbon Dioxide 26.3 (20.0-31.0) mmol/L Anion Gap 8.7 (3-11) mmol/L BUN 19 (9-23) mg/dL Creatinine 0.70 (0.55-1.02) mg/dL Est GFR (CKD-EPI 2020) 82.60 (mL/min/1.73m2) Glucose 104 (74-106) mg/dL Calcium 9.3 (8.3-10.6) mg/dL Magnesium 1.9 (1.6-2.6) mg/dL Total Bilirubin 0.40 (0.2-1.2) mg/dL AST 17 (<34) U/L ALT 7 L (10-49) U/L Alkaline Phosphatase 73 (46-116) U/L Total Protein 8.0 (5.7-8.2) g/dL Albumin 4.2 (3.2-5.0) g/dL Intake and Output - 24 Hour Total 08/26/25 15:20 thru 08/26/25 17:16 Intake Total 110 Balance 110 Weight 117.934 kg Intake: IV 110 Falls Risk Assessment History of Falls Admit Due to Fall 08/26/25 15:29 Contributing Factors No Factors 08/26/25 15:29 Ambulatory Aids Uses ambulatory device 08/26/25 15:29 Tubes/Lines None 08/26/25 15:29 Gait Evaluation No gait disturbance 08/26/25 15:29 Cognition No cognitive impairment 08/26/25 15:29 Fall Total Score 40 08/26/25 15:29 Level of Risk Moderate Risk 08/26/25 15:29 Problems Systolic ejection murmur (Acute) HTN (hypertension) (Chronic) Low back strain (Acute) Attestation Statement: By documenting the first initial, last name, and credentials of the reporting nurse below, both parties acknowledge that all relevant information regarding the patient handoff has been communicated, and that all questions have been addressed to ensure continuity and safety of care. Additional Patient Information/Comments: A&Ox4, VSS, midline back pain d/t fall. No fx seen on imaging. Unable to ambulate ATT, 2A to sit up in bed. Needs pain management and PT. Needs urine sample, has not voided since arrival. No bruising noted by ED nurse. Report Received From: Luciana Sewell RN
[2025-08-26 20:25] VITALS: BP 131/77; PULSE 94; RESP 17; TEMP 37; O2SAT 96
[2025-08-26 20:31] VITALS: BP 131/77; PULSE 94; RESP 17; TEMP 37; O2SAT 96
[2025-08-26] MEDS: Enoxaparin 40 MG/0.4 ML SYR SC (21:27)
[2025-08-26] MEDS: MORPHine CR 15 MG TABCR PO (21:28)
[2025-08-26] MEDS: Metoprolol 12.5 MG TAB 25 MG PO (21:28)
[2025-08-26] MEDS: Acetaminophen 325 MG TAB PO (21:28)
[2025-08-26] MEDS: HYDROmorphone 2 MG/ML SYR IVP (22:27)
[2025-08-26 22:32] LABS: Glucose Negative (Negative)
[2025-08-26 22:42] LABS: C & S Indicated? Yes; WBC 20-50 HPF (0-5)
[2025-08-27] MEDS: Normal Saline Flush 10 ML SYR IVP ×4 (00:04→20:09)
--- NOTE | 2025-08-27 07:16 | INITIAL_ITS ---
Date of service: 08/27/25 Time of Service: 11:48 Care Management Initial Assmt Initial Assessment Reason for Hospitalization: back pain s/p fall Functional Status/Living Situation Patient Presentation: Capri was awake and lying in bed at the time CM met with her. She presented to the ED for evaluation of back pain following a fall. Imaging has been completed, with no fractures identified (see ED documentation). Physical Therapy has been consulted, and recommendations home with home health PT vs SNF dependent on progression the next 1-2 days. Capri reports that she resides in [place] with her partner, Demetris, and his daughter, in a split-level home. She has one daughter who lives in [place]. She states that she is independent at baseline, including driving, and currently does not receive any home health or community services. At this time, she does not feel such services are necessary; CM will follow up with PT recommendations. CM will continue to follow. Town of Residence: [place] Resides with: Spouse (and his daughter) Significant Other/Family: Out of area (Daughter in [place], [place]) Natural Supports: Family Employment Status: Retired Instrumental Activities of Daily Living (ADLs): Independent Medications Medication Management: No Issues/Barriers identified Physical Functioning/Mobility Assistive Device: FWW in the home but does not use at baseline Advance Directives Advance Directives: 2 Do you have an Advance Directive: N , 10:51 AD On File at [facility]: N 07/08/13, 10:51 Date Asked 06/24/25 06/24/25, 12:50 AD Date Reviewed COLST On File at [facility] COLST Date Scanned Code Status Resuscitation Status Full Code Portal Pt does not currently have a portal and education provided: Yes Insurance Coverage/Financial Issues Insurance: Medicare Part A & B - [id number] Medicaid of [place] - [id number] Care Team Visit Care Team Role Provider Type Blade Patino MD [facility] STAFF PHYSICIAN LYUDMILA Robertson Primary Care Provider PH[employer]ICIANS [employer] Carmen Rivera Other Providers OTHER Duglas Perez MD Emergency Provider [facility] STAFF PHYSICIAN Aman Sykes MD Admit Provider [facility] STAFF PHYSICIAN Attending Provider Discharge Potential Discharge Needs: PT Evaluation and PCP F/U Appt Anticipated Barriers to Discharge: None Identified Patient/Family Education Needs: Review discharge instructions, discuss Ask Me Three Transportation: Private vehicle Plan: Anticipate Capri will be discharged home once medically ready. PT recommendations home with home health PT vs SNF dependent on progression the next 1-2 days. It will be recommended that Capri follow up with her communtiy providers and continue per her discharge plan of care. She will transport home via private vehicle. CM will follow. Social Determinants of Health Screening Will the Patient Participate in the Screening?: Declined to provide PFSH All Active Problems (Updated 08/27/25 @ 11:37 by Blade Patino) Intractable back pain (Acute) Systolic ejection murmur (Acute) HTN (hypertension) (Chronic) Ambulatory dysfunction (Acute) Low back strain (Acute) Social History Smoking/Tobacco Use Status: Never Smoking risk assessment performed?: Yes Drug use: Never Housing: house Do you feel safe in your relationship?: Yes Readmission Within the Past 30 Days Yes or No: No
[2025-08-27 07:33] VITALS: BP 121/63; PULSE 64; RESP 16; TEMP 36.2; O2SAT 96
[2025-08-27] MEDS: Aspirin 81 MG CHEW PO (07:43)
[2025-08-27] MEDS: Famotidine 20 MG TAB PO (07:43)
[2025-08-27] MEDS: Cyclobenzaprine 10 MG TAB PO ×3 (07:44→20:07)
[2025-08-27] MEDS: Metoprolol 12.5 MG TAB 25 MG PO (07:44)
[2025-08-27] MEDS: HYDROmorphone 2 MG/ML SYR IVP (08:22)
[2025-08-27] MEDS: Enoxaparin 40 MG/0.4 ML SYR SC ×2 (09:36→20:07)
--- NOTE | 2025-08-27 11:30 | PGE_ITS ---
Date of Service Date of service: 08/27/25 Time of Service: 11:30 Assessment and Plan Assessment and plan (1) Intractable back pain: Status: Acute Assessment and plan: Unable to ambulate in ED No red flags. 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 No chest pain/RANDALL or signs of CHF. This can be followed as an outpatient with echocardiogram, especially as she has untreated severe hyperlipidemia. Subjective Subjective Patient reports: no new complaints and tolerating a regular diet; denies diarrhea, nausea, vomiting, shortness of breath or fever Interval history since last seen: Still pain on lower back, but able to work with PT today. No incontinence (has ramos) or new numbness/weakness Exam Narrative Exam Narrative: GEN: Alert and oriented, NAD Cardiovascular: RRR, 2/6 systolic ejection murmur Lungs clear to auscultation with good air exchange Abdomen soft nontender nondistended Musculoskeletal: moving stacy legs, no numbness Objective Last Vital Signs Temp 36.2 C L 08/27/25 07:33 Pulse 64 08/27/25 07:33 Resp 16 08/27/25 07:33 BP 121/63 08/27/25 07:33 Pulse Ox 96 08/27/25 07:33 Laboratory Results - last 24 hr 08/26/25 08/26/25 15:50 22:20 WBC 9.42 RBC 4.65 Hgb 14.5 Hct 44.1 MCV 95 MCH 31.2 MCHC 32.9 RDW 14.1 Plt Count 240 MPV 10.0 Immature Gran % 0.5 Neutrophils % 70.1 Lymphocytes % 19.0 Monocytes % 7.1 Eosinophils % 2.9 Basophils % 0.4 Nucleated RBC % 0.0 Absolute Neutrophils 6.60 Absolute Lymphocytes 1.79 Absolute Monocytes 0.67 Absolute Eosinophils 0.27 Absolute Basophils 0.04 Sodium 139 Potassium 4.1 Chloride 104 Carbon Dioxide 26.3 Anion Gap 8.7 BUN 19 Creatinine 0.70 Est GFR (CKD-EPI 2020) 82.60 Glucose 104 Calcium 9.3 Magnesium 1.9 Total Bilirubin 0.40 AST 17 ALT 7 L Alkaline Phosphatase 73 Total Protein 8.0 Albumin 4.2 Urine Color Yellow Urine Clarity Clear Urine pH 6.5 Ur Specific [place] 1.020 Urine Protein 30 H Urine Ketones Negative Urine Blood Small H Urine Nitrite Negative Urine Bilirubin Negative Urine Urobilinogen 0.2 Ur Leukocyte Esterase Trace H Urine RBC 3-5 H Urine WBC 20-50 H Ur Epithelial Cells Few Urine Crystals Negative Urine Bacteria Rare Urine Casts Negative Urine Mucus Trace Ur Culture Indicated? Yes Urine Glucose Negative VTE Prohylaxis Risk Level: Moderate/High Risk Contraindications: None Prophylaxis: Patient anticoagulated and Pharmacologic Time Spent with Patient Time Spent with Patient: 35-49 minutes Time was spent: preparing to see the patient(eg.review tests), obtaining and/or reviewing separately otained hiistory, ordering medications,tests, procedures, referring, communicating with other health resident care associate, indepentently interpreting results, counseling the patient and care coordination
--- NOTE | 2025-08-27 11:36 | PT.INIE ---
PT Notes Visit Reasons: Back Pain s/p Fall Inpatient Physical Therapy Evaluation Date: 08/27/25 Referring Doctor: Dr. ySkes PT Orders: PT CONSULT: non urgent Precautions: N/A Patient Profile/Admitting Diagnosis: Back pain s/p fall PMHX: L TKA Social History/Home Situation: Pt lives with her boyfriend and daughter in law. Both are able to help her if needed. She reports she fell on her right side due to her right knee giving out. She now has pain and spasms in the right side of her low back. She normally is fully independent with her mobility. She has a few steps to get into her house but otherwise can live on one floor. She does have a RW at home that she used following her knee replacement but does not normally use one. She does mention that she sleeps in a mechanical recliner so getting out of the hospital bed may be difficult for her anyway. Subjective: Pt is skeptical about how well she can move today but is happy to try. Objective: General Observation: no acute distress, just finishing breakfast Mental Status: A+Ox4 Pain: none at rest, sharp pain localized to the right side of the low back with movement Vital Signs: monitored by nursing Strength: Able to perform SLR bilaterally but difficult for her Able to perform heel slide bilaterally Sensation: Notes no sensation loss or numbness/tingling Bed Mobility/Transfers: supine to sitting w/mod assist sitting to supine w/min assist sitting to standing w/CGA standing to sitting w/CGA Gait: Ambulates 40 ft w/RW and CGA Balance: Static Sitting: Good Dynamic Sitting: Good Static Standing: Fair Dynamic Standing: Fair Special Tests: Mobility Limitations Standardized Measure [facility] AM-PAC 6 clicks Basic Mobility Inpatient Short Form: Raw Score: 15 CMS Score: 57.7% Informed Consent/Education: Patient instructed in purpose of PT consult and plan of care. Assessment: Patient is currently below her baseline functional levels due to her back discomfort. She requires min to mod assist to get into and out of her bed. She likely will not need to perform these motions at home due to the fact that she sleeps in a mechanical recliner. She was limited with her ambulation today due to her pain but did well with a RW. She will need to perform stairs prior to going home as she has a few to manage to get into her home. Her pain does seem mechanical and should improve over time. Home health PT is likely appropriate if she continues to progress and is able to perform stairs tomorrow. We will continue to assess her each day to help develop an appropriate discharge plan. Patient is assessed as a [x] Low 71485 complexity based on the following: History: Low Examination: Low Presentation: Low Decision Making: Low Goals: Goals X2 days 1. Supine-Sit w/CGA 2. Sit-Supine w/CGA 3. Sit-Stand w/SBA 4. Stand-Sit w/SBA 5. Bed-Chair w/SBA 6. Chair-Bed w/SBA 7. Gait - ambulates >50 ft w/SBA and use of RW 8. Stairs - ascends/descends 3 steps with bilat UE support and SBA Plan of Care/Treatment Plan: 1-2x/day, 7 days/week x 1 week. Plan of care has been reviewed with the [employer] providing the service under Physical Therapy direction. Initiate Physical Therapy intervention for strengthening, bed mobility, transfers, gait, stairs, balance training, use of assistive device. DISCHARGE RECOMMENDATIONS: [x] Home with home health PT vs SNF dependent on progression the next 1-2 days TREATMENT CODE/TIME: Low Eval (90495) x1 - 30 min
[2025-08-27] MEDS: Acetaminophen 325 MG TAB PO ×2 (13:43→20:17)
[2025-08-27] MEDS: Ibuprofen 400 MG TAB 600 MG PO ×2 (13:44→20:17)
[2025-08-27] MEDS: MORPHine CR 15 MG TABCR PO (17:27)
[2025-08-27 19:13] VITALS: BP 121/57; PULSE 71; RESP 16; TEMP 36.2; O2SAT 95
[2025-08-27] MEDS: Metoprolol 25 MG TAB PO (20:07)
[2025-08-28] MEDS: HYDROmorphone 2 MG/ML SYR IVP (00:05)
[2025-08-28] MEDS: Normal Saline Flush 10 ML SYR IVP ×2 (00:05→08:10)
[2025-08-28 06:04] VITALS: BP 153/80; PULSE 62; RESP 16; TEMP 36.9; O2SAT 95
[2025-08-28 06:52] LABS: Anion Gap 7 mmol/L (3-11); BUN 17 mg/dL (9-23); CO2 28.0 mmol/L (20.0-31.0); Calcium 8.6 mg/dL (8.3-10.6); Chloride 102 mmol/L (98-107); Glucose 85 mg/dL (74-106); Potassium 4.0 mmol/L (3.5-5.1); Sodium 137 mmol/L (136-145)
[2025-08-28] MEDS: Aspirin 81 MG CHEW PO (08:08)
[2025-08-28] MEDS: Famotidine 20 MG TAB PO (08:08)
[2025-08-28] MEDS: Ibuprofen 200 MG TAB 600 MG PO (08:08)
[2025-08-28] MEDS: Cyclobenzaprine 10 MG TAB PO (08:08)
[2025-08-28] MEDS: Metoprolol 25 MG TAB PO (08:09)
[2025-08-28] MEDS: Acetaminophen 325 MG TAB PO (08:09)
--- NOTE | 2025-08-28 08:25 | W.PM.PROGNOT ---
Date of Service Date of service: 08/28/25 Time of Service: : Assessment and Plan Assessment and plan (1) Intractable back pain: Status: Acute Assessment and plan: -Unable to ambulate in ED -no signs or symptoms concerning for cord compression -Continue multimodal pain control and physical therapy (2) HTN (hypertension): Status: Chronic Assessment and plan: -Continue with metoprolol (3) Systolic ejection murmur: Status: Acute Assessment and plan: -Somewhat abnormal EKG with possible old inferior infarct. -No chest pain/RANDALL or signs of CHF. -recomend outpatient TTE Objective Last Vital Signs Temp 98.4 F 08/28/25 06:04 Pulse 62 08/28/25 06:04 Resp 16 08/28/25 06:04 BP 153/80 H 08/28/25 06:04 Pulse Ox 95 08/28/25 06:04 Laboratory Results - last 24 hr 08/28/25 06:23 Sodium 137 Potassium 4.0 Chloride 102 Carbon Dioxide 28.0 Anion Gap 7 BUN 17 Creatinine 0.83 Est GFR (CKD-EPI 2020) 67.86 Glucose 85 Calcium 8.6 VTE Prohylaxis Risk Level: Moderate/High Risk Contraindications: None Prophylaxis: Patient anticoagulated and Pharmacologic
--- NOTE | 2025-08-28 10:17 | PT.INTREAT ---
PT Notes Visit Reasons: Back Pain s/p Fall Inpatient Physical Therapy Treatment Note [facility] Date: 08/28/25 PRECAUTIONS: n/a SUBJECTIVE: Pt states that she would like to have another day in the hospital but she has no real concerns about going home. OBJECTIVE: ? PAIN: twinges noted but not severe today VITALS: monitored by nursing Therapeutic Activities (02498l1): Direct one-on-one instruction in dynamic activities to improve functional performance. ? BED MOBILITY/TRANSFERS? Rolling L/R: independent Supine-sit: independent ? Sit-supine: independent ? Sit-stand: independent? Stand-sit: independent ? Bed-Chair: SBA? Chair-bed: SBA Provided skilled cues and instruction on performance and technique throughout. ? ? GAIT? Assistive Device: RW - which she has at home? Weight bearing: WBAT Assist: SBA? Distance:? 30 ft x 2? Deviation: decreased gait speed, increased UE support on RW ? STAIRS: transported to rehab room where she performs 2x2 steps both ascending and descending w/bilat UE support and SBA ? ASSESSMENT:? Pt showing many improvements today as she was able to get into and out of bed completely independently, and perform stairs. She has become much more independent with walking as well as she is now only a SBA with a RW. She is cleared by PT to return home when medically cleared as she does have a walker at home. Home health PT is recommended to help assist her at home and optimize her functional capabilities. PLAN: Discharge when medically cleared TREATMENT CODE/TIME: Ther Act (01530) x1 - 20 min DISCHARGE RECOMMENDATION: Home with home health PT
[2025-08-28] MEDS: Enoxaparin 40 MG/0.4 ML SYR SC (10:29)
--- NOTE | 2025-08-28 10:48 | W.PM.DS.N ---
Date of service: 08/28/25 Time of Service: 10:48 DS: Diagnosis Discharge Diagnosis (1) Intractable back pain: Status: Acute (2) HTN (hypertension): Status: Chronic (3) Systolic ejection murmur: Status: Acute Discharge Plan Disposition Patient Disposition: Home W/Home Health Services Home Health Services: New Referral Condition: Good Discharge Details Reason For Visit: Back Pain s/p Fall Admit Date/Time: 08/26/25 19:32 Admit Provider: Aman Sykes Attending Provider: Aman Sykes Primary Care Provider: Evelyne Nuno Hospital Course Hospital Course: Patient initially presented to the hospital after experiencing intractable back pain after falling at home. CT of the spine did not show any significant issues but incidentally found some mild canal stenosis at L3-L4 and L4-L5. During hospitalization patient was worked with physical therapy and was given muscle relaxers and pain medication and had significant improvement of her ambulatory status able to walk the floor as well as stairs without difficulty. Given the patient was able to ambulate on her own it was determined that she was stable for discharge home with new home health PT services. Home Meds and New Rx's Prescriptions: New cyclobenzaprine 10 mg Tablet 10 mg PO TID Qty: 30 0RF morphine 15 mg Tablet Extended Release 15 mg PO Q8H PRN PRN (Reason: Pain) Qty: 12 0RF ondansetron 4 mg Tablet,Disintegrating 8 mg PO Q8H PRN PRNQty: 12 0RF Continued aspirin [Aspirin Low-Strength] 81 MG tablet,chewable 81 mg PO DAILY ibuprofen 200 MG capsule 400 mg PO PRN PRN metoprolol tartrate 25 mg tablet 25 mg PO BID Patient Comments: TAKE ONE TABLET BY MOUTH TWICE A DAY acetaminophen [Tylenol Arthritis Pain] 650 MG tablet extended release 650 mg PO DAILY Pepcid Complete 1 EACH tablet,chewable 1 ea PO DAILY Discharge Instructions Stand Alone Forms: Portal Information Activity:: Activity as Tolerated Equipment/Supplies:: No Equipment Needed Diet:: As Tolerated Discharge Orders Discharge Orders: Discharge Order (Routine); Ordered 08/28/25 Ordered By: Lion Reyes DS: Summary Time Spent with Patient providing and/or coordinating discharge services: Greater than 30 minutes Status at Discharge Functional status at discharge: independent ambulation Overall status at discharge: patient is back to baseline Mental Status: mental status grossly normal Speech and Movement: speech and movement normal Mood: congruent mood Affect: normal affect Exam Narrative Exam Narrative: Well-appearing older female laying in bed in no acute distress, ANO x 4, heart regular rhythm with mild systolic murmur noted, lungs good auscultation bilaterally, abdomen soft, nontender, nondistended Psych Mental Status: mental status grossly normal Speech and Movement: speech and movement normal Mood: congruent mood Affect: normal affect DS: Data Vitals/I&O Vitals and I&O: Vital Signs Temperature 98.4 F 08/28/25 06:04 Temperature Source Temporal Artery Scan 08/28/25 06:04 Pulse 62 08/28/25 06:04 Pulse Rhythm Regular 08/26/25 20:25 Respiratory Rate 16 08/28/25 06:04 Respiratory Effort Normal, Non-Labored 08/26/25 20:25 Respiratory Depth Normal 08/26/25 20:25 Respiratory Pattern Normal 08/26/25 20:25 Blood Pressure 153/80 H 08/28/25 06:04 Blood Pressure Mean 104 08/28/25 06:04 Blood Pressure Position Sitting 08/26/25 15:26 Pulse Oximetry 95 08/28/25 06:04 Oxygen Delivery Method Room Air 08/28/25 06:04 Oxygen Flow Rate 0 08/28/25 06:04 Pain Level 4 08/28/25 08:20 Intake & Output 08/27/25 08/28/25 08/28/25 17:59 05:59 17:59 Intake Total 490 / 490 250 / 740 240 / 240 Output Total 550 / 550 450 / 1000 1100 / 1100 Balance -60 / -60 -200 / -260 -860 / -860 Weight 270 lb 4.587 oz 270 lb 1.06 oz Intake: IV 10 Oral 480 / 480 240 / 720 240 / 240 Output: Urine 550 / 550 450 / 1000 1100 / 1100 Other: Urine Color Yellow Yellow Yellow Urine Appearance Clear Cloudy Cloudy Urine Odor Normal Normal Normal Comment light yellow cloudy Data Completed and Pending Pending Labs at Discharge: 08/26/25 08/26/25 08/28/25 15:50 22:20 06:23 WBC 9.42 RBC 4.65 Hgb 14.5 Hct 44.1 MCV 95 MCH 31.2 MCHC 32.9 RDW 14.1 Plt Count 240 MPV 10.0 Immature Gran % 0.5 Neutrophils % 70.1 Lymphocytes % 19.0 Monocytes % 7.1 Eosinophils % 2.9 Basophils % 0.4 Nucleated RBC % 0.0 Absolute Neutrophils 6.60 Absolute Lymphocytes 1.79 Absolute Monocytes 0.67 Absolute Eosinophils 0.27 Absolute Basophils 0.04 Sodium 139 137 Potassium 4.1 4.0 Chloride 104 102 Carbon Dioxide 26.3 28.0 Anion Gap 8.7 7 BUN 19 17 Creatinine 0.70 0.83 Est GFR (CKD-EPI 2020) 82.60 67.86 Glucose 104 85 Calcium 9.3 8.6 Magnesium 1.9 Total Bilirubin 0.40 AST 17 ALT 7 L Alkaline Phosphatase 73 Total Protein 8.0 Albumin 4.2 Urine Color Yellow Urine Clarity Clear Urine pH 6.5 Ur Specific [place] 1.020 Urine Protein 30 H Urine Ketones Negative Urine Blood Small H Urine Nitrite Negative Urine Bilirubin Negative Urine Urobilinogen 0.2 Ur Leukocyte Esterase Trace H Urine RBC 3-5 H Urine WBC 20-50 H Ur Epithelial Cells Few Urine Crystals Negative Urine Bacteria Rare Urine Casts Negative Urine Mucus Trace Ur Culture Indicated? Yes Urine Glucose Negative Preliminary micro results at discharge 08/26/25 22:20 Urine - Reflex from Ua Urine Culture - Preliminary Gram positive dagmar, mixed Gram negative lora PFSH All Active Problems (Updated 08/27/25 @ 11:37 by Blade Patino) Intractable back pain (Acute) Systolic ejection murmur (Acute) HTN (hypertension) (Chronic) Ambulatory dysfunction (Acute) Low back strain (Acute) Social History Smoking/Tobacco Use Status: Never Smoking risk assessment performed?: Yes Drug use: Never Housing: house Do you feel safe in your relationship?: Yes Time Spent with Patient Time Spent with Patient: <45 minutes Time was spent: preparing to see the patient(eg.review tests), obtaining and/or reviewing separately otained hiistory, ordering medications,tests, procedures, referring, communicating with other health occasional caregiver, indepentently interpreting results, counseling the patient and care coordination
--- NOTE | 2025-08-28 10:49 | PDOC.HHF2F_ITS ---
Date of service: 08/28/25 Time of Service: 10:49 Home Health Referral Home Health Orders Clinical synopsis of why skilled professionals are needed: intractable back pain, lumbar spine strain Physical Therapist: Check all that apply Increase strength & endurance for safe mobility at home: Ordered To design/establish home maintenance program: Ordered Fall reduction therapy program for patient with history of frequent falls: Ordered Home safety evaluation and teaching/gait training including stair management (if applicable): Ordered Encounter Date and Reason: I certify that a FTF encounter for this patient was performed on August 28, 2025 and that such encounter was related to the primary reason the patient requires home health services. The encounter was conducted in the following manner: * By me as the certifying physician, DESIGN CHIEF, PA or * By an inpatient physician, DESIGN CHIEF or PA during an inpatient stay who communicated findings to me, Certification And Authentication I certify that I composed the above information based on my clinical judgment relating to this patient's medical condition and, if applicable, clinical findings communicated to me by the NPP or inpatient physician who performed the FTF encounter. Name of Provider that will be monitoring home health services: Evelyne Nuno
--- NOTE | 2025-08-28 11:32 | PDOC.CMDIS ---
Date of service: 08/28/25 Time of Service: 11:32 LACE Index Scoring Tool Questions: Length of Stay (in days): 2 Was the patient admitted via the E.D.?: Yes E.D. Visits: 1 Answers: Total Score: 6 Risk of Readmission: Low Risk Care Management Discharge Plan Reason for Hospitalization: back pain s/p fall Discharge Plan: Capri will be discharged home with new PT. It will be recommended that Capri follow up with her community providers and continue per her discharge plan of care. She will transport home via private vehicle. Patient/Family Education Needs: Review of discharge instructions, activity, limitations, and plan of care. Discuss ask me three. Services Needed at Discharge: Home Health Care Services
== END 2025-08-28 12:58 | disposition home health service (06) ==
LOC: ER 19:30 → MS 20:08
PROVIDERS: Family Medicine; Admitting Provider Hospitalist; Emergency Provider Emergency Medicine; PCP Physician Assistant Medical; Responsible Provider Family Medicine; Visit Provider Hospitalist
DX: S39.012A Strain of muscle, fascia and tendon of lower back, initial encounter (principal); G89.11 Acute pain due to trauma; R26.2 Difficulty in walking, not elsewhere classified; I10 Essential (primary) hypertension; R01.1 Cardiac murmur, unspecified; M48.061 Spinal stenosis, lumbar region without neurogenic claudication; W10.8XXA Fall (on) (from) other stairs and steps, initial encounter; Z79.899 Other long term (current) drug therapy
CPT/HCPCS: 00123; 36415; 80048; 80053; 93005; 96365; 96375; 97161; 97530; 99285; J1650; 72128; 72131; 81003; 81015; 83735; 85025; 87086; 93010; 99222; 99232; 99238; G0378; J0131; J1171; J1885; J2270; J3360; J3490